=== PATIENT | female | born 1985 ===

== ENCOUNTER 2017-10-18 01:32 | Emergency (ER) | payer SELFPAY ==
[2017-10-18 02:24] VITALS: BP 130/79
[2017-10-18 02:54] LABS: Basophils # (Auto) 0.1 K/mm3 (0.0-0.1); Basophils % (Auto) 1.3 % (0.0-1.8); Eosinophils # (Auto) 0.6 K/mm3 (0.0-0.4); Eosinophils % (Auto) 5.9 % (0.0-4.3); Hemoglobin 11.3 gm/dl (10.1-14.3); Lymphocytes # (Auto) 3.3 K/mm3 (1.2-5.4); Lymphocytes % (Auto) 31.6 % (13.4-35.0); Mean Corpuscular HGB Conc 33 % (30-34); Mean Corpuscular Hemoglobin 29 pg (28-32); Mean Corpuscular Volume 87 fl (79-97); Monocytes # (Auto) 0.8 K/mm3 (0.0-0.8); Monocytes % (Auto) 7.8 % (0.0-7.3); Platelet Count 287 K/mm3 (140-440); Red Blood Count 3.93 M/mm3 (3.65-5.03); Red Cell Distribution Width 14.2 % (13.2-15.2)
[2017-10-18 03:07] LABS: BUN/Creatinine Ratio 12; Blood Urea Nitrogen 6 mg/dL (7-17); Calcium 8.7 mg/dL (8.4-10.2); Hemolysis Index 6
[2017-10-18 04:08] LABS: Bacteria,Urine 1+ /HPF (Negative); Bilirubin,Urine NEG (Negative); Blood,Urine NEG (Negative); Color,Urine Yellow (Yellow); Mucus,Urine 3+ /HPF; Urobilinogen,Urine < 2.0 mg/dL (<2.0)
== END 2017-10-18 03:43 | disposition left against medical advice (07) ==
LOC: ED 01:32
DX: R60.0 Localized edema (principal); Z53.21 Procedure and treatment not carried out due to patient leaving prior to being seen by health care provider
CPT/HCPCS: 36415; 80048; 81001; 84703; 85025